=== PATIENT | male | born 1960 | race Caucasian/White ===

== ENCOUNTER 2025-05-05 18:43 | Observation (INO) | payer OTHER ==
[2025-05-05] MEDS ORDERED: LIDOCAINE HCL 2% JELLY 10 ML CARTRIDGE ONE (19:40)
[2025-05-05] MEDS ORDERED: PHENAZOPYRIDINE HCL 100 MG TABLET (FP) ONE (20:08)
[2025-05-05] MEDS: PHENAZOPYRIDINE HCL 100 MG TABLET (FP) PO ONE (20:11)
[2025-05-05 20:52] LABS: ABSOLUTE IMMATURE GRANULOCYTES 0.01 x10^3/uL (0.0-0.031); BASOPHILS # 0.05 x10^3/uL (0.01-0.08); EOSINOPHIL % 6.2 % (0.8-7.0); HEMOGLOBIN 11.6 g/dL (13.7-17.5); MCHC 33.1 g/dl (32.3-36.5); MEAN PLT VOLUME 8.8 fl (9.4-12.4); MONOCYTE # 0.65 x10^3/uL (0.30-0.82); MONOCYTE % 8.1 % (5.3-12.2); PLATELET COUNT 222 x10^3/uL (163-337); RDW 14.5 % (12.2-16.4)
[2025-05-05 21:11] LABS: ALBUMIN 4.2 g/dl (3.4-5.0); ALK PHOS 90 U/L (45-117); ANION GAP 11 mmol/L (4-13); BILIRUBIN,TOTAL 0.6 mg/dl (0.2-1); CALCIUM 9.7 mg/dl (8.5-10.1); CHLORIDE 104 mmol/L (98-107); CO2 28 mmol/L (21-32); GLUCOSE,RANDOM 112 mg/dl (74-106); POTASSIUM 4.2 mmol/L (3.5-5.1); SGOT/AST 16 U/L (15-37); SGPT/ALT 21 U/L (7-52); SODIUM 143 mmol/L (136-145); TOT PROT 7.1 g/dl (6.4-8.2)
[2025-05-05] MEDS: morphine CARPU-JECT 2 MG/1 ML DISP.SYRIN IVPUSH ONE (21:11)
[2025-05-05] MEDS: SODIUM CHLORIDE 1,000 ML IV SCH (21:11)
[2025-05-05 21:31] VITALS: BMI 31.2
[2025-05-05] MEDS ORDERED: DOCUSATE SODIUM 100 MG CAPSULE (FP) PO PRN (22:11)
[2025-05-06] MEDS: INSULIN ASPART SLIDING SCALE (NOVOLOG) 1 VIAL SQ SCH (00:33)
[2025-05-06 02:06] LABS: BLOOD UREA NITROGEN 66.6 mg/dL (7-18); MAGNESIUM 2.6 mg/dL (1.8-2.4)
[2025-05-06 02:09] LABS: CREATININE 2.5 mg/dL (0.55-1.3)
[2025-05-06 02:10] LABS: PHOSPHOROUS 6.2 mg/dL (2.5-4.9)
[2025-05-06 02:18] LABS: CALCIUM 9.8 mg/dL (8.5-10.1)
[2025-05-06] MEDS ORDERED: SODIUM CHLORIDE 0.45% 1,000 ML IV SCH (03:45)
[2025-05-06 08:02] LABS: BASOPHILS # 0.04 x10^3/uL (0.01-0.08); EOSINOPHIL % 9.5 % (0.8-7.0); EOSINOPHILS # 0.67 x10^3/uL (0.04-0.54); HEMATOCRIT 32.1 % (40.1-51.0); HEMOGLOBIN 10.5 g/dL (13.7-17.5); MCHC 32.7 g/dl (32.3-36.5); MEAN CELL VOLUME 89.9 fl (79.0-92.2); MEAN PLT VOLUME 8.8 fl (9.4-12.4); MONOCYTE # 0.69 x10^3/uL (0.30-0.82); MONOCYTE % 9.7 % (5.3-12.2); PLATELET COUNT 220 x10^3/uL (163-337); RDW 14.5 % (12.2-16.4)
[2025-05-06 08:15] LABS: CALCIUM 9.1 mg/dl (8.5-10.1); CREATININE 1.7 mg/dl (0.6-1.3); POTASSIUM 4.2 mmol/L (3.5-5.1)
[2025-05-06 09:00] LABS: MAGNESIUM 2.3 mg/dL (1.8-2.4); PHOSPHOROUS 5.3 (2.5-4.9)
[2025-05-06] MEDS: APIXABAN 5 MG TABLET PO SCH (10:27)
[2025-05-06] MEDS: LACTATED RINGERS SOLUTION 1,000 ML/1,000 ML INFUS.BAG IV SCH (10:31)
[2025-05-06] MEDS ORDERED: RIFABUTIN 150 MG CAPSULE PO SCH ×2 (12:00→13:00)
[2025-05-06] MEDS: DOXYCYCLINE INJECTION 100 MG in DEXTROSE 5%-WATER 100 ML IVPB SCH (12:37)
[2025-05-06 22:20] VITALS: RESP 18
[2025-05-07] MEDS: ACETAMINOPHEN 500 MG TABLET (FP) PO PRN (01:32)
[2025-05-07 08:01] LABS: HEMATOCRIT 34.7 % (40.1-51.0); HEMOGLOBIN 11.4 g/dL (13.7-17.5); MCHC 32.9 g/dl (32.3-36.5); MEAN CELL VOLUME 89.7 fl (79.0-92.2); MEAN PLT VOLUME 8.7 fl (9.4-12.4); PLATELET COUNT 236 x10^3/uL (163-337); RDW 14.2 % (12.2-16.4)
[2025-05-07 08:12] LABS: CALCIUM 8.9 mg/dl (8.5-10.1); CREATININE 1.3 mg/dl (0.6-1.3); PHOSPHOROUS 3.6 (2.5-4.9); POTASSIUM 4.3 mmol/L (3.5-5.1)
[2025-05-07] MEDS: TAMSULOSIN HCL 0.4 MG CAP PO SCH (09:41)
[2025-05-07 11:05] VITALS: BP 146/83; PULSE 71; TEMP 98
== END 2025-05-07 13:36 | disposition home or self-care (01) ==
LOC: FER 18:43 → FM/S 21:26
PROVIDERS: ADMIT Internal Medicine; ATTEND Internal Medicine
PROC: 0T9B70Z Drainage of Bladder with Drainage Device, Via Natural or Artificial Opening (ICD-10-PCS; principal; 2025-05-05)
PROC: 3E03329 Introduction of Other Anti-infective into Peripheral Vein, Percutaneous Approach (ICD-10-PCS; 2025-05-05)
PROC: 3E033NZ Introduction of Analgesics, Hypnotics, Sedatives into Peripheral Vein, Percutaneous Approach (ICD-10-PCS; 2025-05-05)
PROC: 3E0337Z Introduction of Electrolytic and Water Balance Substance into Peripheral Vein, Percutaneous Approach (ICD-10-PCS; 2025-05-05)
DX: N13.9 Obstructive and reflux uropathy, unspecified (principal); R33.9 Retention of urine, unspecified; N17.9 Acute kidney failure, unspecified; N40.0 Benign prostatic hyperplasia without lower urinary tract symptoms; Z88.8 Allergy status to other drugs, medicaments and biological substances
CPT/HCPCS: 36415; 71045-TC-FY; 80048; 80053; 81003; 81015; 82962; 83735; 84100; 85025; 85027; 87086; 93005; 99285-25; G0378